=== PATIENT | female | born 1945 | race Caucasian/White ===

== ENCOUNTER 2018-03-24 14:31 | Observation (INO) ==
--- NOTE | 2018-03-24 15:21 | Emergency Department Note ---
Disposition Clinical Impression: GEE (acute kidney injury) Chest pain Qualifiers: Chest pain type: unspecified Qualified Code(s): R07.9 - Chest pain, unspecified Disposition: Admitted As Inpatient Condition: Good Referrals: Lazarus Can CNP [Primary Care Provider] - Forms: ED Satisfaction Letter Time of Disposition: 19:10 General Adult HPI - General Chief complaint: ED Dizziness Stated complaint: Dizzy Time Seen by Provider: 03/24/18 14:41 Source: patient, EMS Mode of arrival: ambulatory Limitations: no limitations Nursing Notes Reviewed: Yes Vital Signs Reviewed: Yes - History of Present Illness HPI Narrative: Patient is a 73-year-old female that presents emergency department with a chief complaint of dizziness. Patient states that she was riding with her daughter and began to feel lightheaded and dizzy. She states that she felt like this is likely secondary to her blood sugar being low so she took 2 glucose tablets and states that this did not immediately provide relief. Patient did state that she was having chest pain located on the left side of her chest that was sharp in nature. Patient was unable to state whether or not she had any shortness of breath and radiation of the pain. Patient states that she just cannot remember. Patient states that she did become nauseated and felt like she could throw up. Patient states that she has had 1 or 2 episodes like this in the past that was attributed to hypoglycemia. Pain Scale: 0 - Related Data Home Medications Medication Instructions Recorded Confirmed Gabapentin [Neurontin] 300 mg PO BID 03/24/18 03/24/18 Lisinopril [Zestril] 5 mg PO DAILY 03/24/18 03/24/18 Metformin HCl [Glucophage] 1,000 mg PO BID 03/24/18 03/24/18 Simvastatin [Zocor] 2.5 mg PO DAILY 03/24/18 03/24/18 glyBURIDE [GlyBURIDE] 5 mg PO DAILY 03/24/18 03/24/18 Allergies Allergy/AdvReac Type Severity Reaction Status Date / Time No Known Allergies Allergy Verified 03/24/18 18:59 All systems ED: reviewed and negative except as stated. Cardiovascular: Reports: chest pain Respiratory: Denies: dyspnea Gastrointestinal: Reports: nausea. Denies: abdominal pain, vomiting, diarrhea Past Medical History - Past Medical History Medical history: Reports: arthritis, diabetes, hyperlipidemia, hypertension Psychiatric history: Reports: anxiety, depression - Social History Smoking Status: Former smoker Smokeless Tobacco Status: No Alcohol use: Reports: none Drug use: Reports: none Physical Exam - General Limitations: no limitations General appearance: alert, in no apparent distress - Head Head exam: atraumatic, normocephalic - Eye Eye exam: Present: normal appearance, EOMI - Neck Neck exam: Present: normal inspection, full ROM, trachea midline - Respiratory Respiratory exam: Present: normal lung sounds bilaterally. Absent: respiratory distress, wheezes - Cardiovascular Cardiovascular exam: Present: regular rate, normal rhythm, normal heart sounds, +S1, +S2 - Abdominal Exam Abdominal exam: Present: soft, Non-Tender, normal bowel sounds - Neurological Exam Neurological exam: Present: alert, oriented X3 - Psychiatric Psychiatric exam: Present: normal affect, normal mood - Skin Skin exam: Present: warm, dry, intact Course Vital Signs Temperature 98.5 F 03/24/18 14:38 Pulse Rate 78 03/24/18 14:38 Respiratory Rate 22 03/24/18 14:38 Blood Pressure 118/70 03/24/18 14:38 O2 Sat by Pulse Oximetry 96 03/24/18 14:38 Temperature 98.5 F 03/24/18 14:38 Pulse Rate 82 03/24/18 17:05 Respiratory Rate 16 03/24/18 17:05 Blood Pressure 121/74 03/24/18 17:05 O2 Sat by Pulse Oximetry 100 03/24/18 17:05 Oxygen Delivery Oxygen Delivery Room Air Medical Decision Making - MDM Narrative Medical decision making narrative: Due the patient presenting to the emergency department with dizziness and associated chest pain we will obtain a CBC, BMP, troponin, chest x-ray and EKG. Due to the patient being 73 years old and having no prior cardiac history and now having a near syncopal episode with chest pain the patient will likely need to be admitted to the hospital for further evaluation and management. Patient' s troponin is negative. Patient does appear to have an GEE. EKG did not show any ischemic changes. Chest x-ray did show a rightward shifting mediastinum so a CT of the chest was ordered which was negative for acute process. Due to the patient's symptoms of history of present illness and concern for ACS the patient will need to be admitted to the hospital for further evaluation and management. The patient and family member were in agreement with this plan. - Lab Data Lab results reviewed: Yes I reviewed the patient's lab results. Result diagrams: 03/24/18 15:31 03/24/18 15:31 Lab Results 03/24/18 03/24/18 Range/Units 15:31 15:31 WBC 10.5 (4.3-11.1) K/mcL RBC 3.77 L (3.82-4.97) M/mcL Hgb 12.2 (11.5-15.4) g/dL Hct 35.9 (35.3-44.9) % MCV 95.2 (83.0-100.0) fL MCH 32.4 (28.0-33.3) pg MCHC 34.0 (31.6-35.5) g/dL RDW 12.5 (11.5-14.5) % Plt Count 270 (140-400) K/mcL MPV 9.4 (9.4-12.4) fL Immature Gran % 0.4 (0-4) % Seg Neutrophils % 64.1 % Lymphocytes % 24.7 % Monocytes % 5.6 % Eosinophils % 4.4 % Basophils % 0.8 % Neutrophils # 6.7 (1.6-8.9) K/mcL Lymphocytes # 2.6 (0.6-4.6) K/mcL Monocytes # 0.6 (0.0-1.3) K/mcL Eosinophils # 0.5 (0.0-0.6) K/mcL Basophils # 0.1 (0.0-0.2) K/mcL Sodium 137 (136-145) mEq/L Potassium 4.6 (3.5-5.1) mEq/L Chloride 103 (98-107) mEq/L Carbon Dioxide 24 (23-29) mEq/L BUN 11 (8-23) mg/dL Creatinine 1.33 H (0.60-1.20) mg/dL Est GFR ( Amer) 48 L (> 60) Est GFR (Non-Af Amer) 39 L (> 60) BUN/Creatinine Ratio 8 (6-26) Glucose 218 H (70-105) mg/dL Calculated Osmolality 290 (280-300) Calcium 9.2 (8.6-10.3) mg/dL Troponin I < 0.03 (< 0.04) ng/mL - Radiology Data Radiology results reviewed: Yes I reviewed the patient's radiology results. Chest X-Ray 03/24/18 15:14 IMPRESSION: 1. Right hemithoracic volume loss with mediastinal shift to the right. This may be chronic, but there are no prior studies available for comparison. Please correlate for any prior surgical history. 2. No evidence of acute intrathoracic process. D/ / 03/24/2018 15:54:13 Carmina ravi Interpreting Provider: Carmina Cheung Chest CT 03/24/18 16:52 IMPRESSION: 1. No acute intrathoracic process. The appearance on chest radiograph was probably artifactual. 2. Tiny hiatal hernia. 3. Moderate coronary artery calcification. D/ / 03/24/2018 17:54:43 Carmina ravi Interpreting Provider: Carmina Cheung - EKG Data EKG #1 EKG attestation: Yes I reviewed and interpreted this EKG. EKG results narrative: EKG shows a sinus rhythm at 79 bpm, AK interval of 228, curious duration 96, QTc of 450 with no evidence of STEMI at this time.
[2018-03-24 15:58] LABS: Basophils # 0.1 K/mcL (0.0-0.2); Basophils % 0.8 %; Eosinophils # 0.5 K/mcL (0.0-0.6); Eosinophils % 4.4 %; Hematocrit 35.9 % (35.3-44.9); Hemoglobin 12.2 g/dL (11.5-15.4); Immature Granulocytes % 0.4 % (0-4); Lymphocytes # 2.6 K/mcL (0.6-4.6); Lymphocytes % 24.7 %; Mean Corpuscular Hemoglobin 32.4 pg (28.0-33.3); Mean Corpuscular Volume 95.2 fL (83.0-100.0); Mean Platelet Volume 9.4 fL (9.4-12.4); Monocytes # 0.6 K/mcL (0.0-1.3); Monocytes % 5.6 %; Neutrophils # 6.7 K/mcL (1.6-8.9); Platelet Count 270 K/mcL (140-400); Red Blood Count 3.77 M/mcL (3.82-4.97); Red Cell Distribution Width 12.5 % (11.5-14.5); Segmented Neutrophils % 64.1 %
--- NOTE | 2018-03-24 15:59 | Emergency Department Note ---
Disposition Clinical Impression: GEE (acute kidney injury) Chest pain Qualifiers: Chest pain type: unspecified Qualified Code(s): R07.9 - Chest pain, unspecified Disposition: Admitted As Inpatient Condition: Good Referrals: Lazarus Can CNP [Primary Care Provider] - Forms: ED Satisfaction Letter General Adult HPI - General Chief complaint: ED Dizziness Stated complaint: Dizzy Time Seen by Provider: 03/24/18 14:41 Source: patient, EMS Mode of arrival: ambulatory Limitations: no limitations - History of Present Illness Pain Scale: 0 - Related Data Home Medications Medication Instructions Recorded Confirmed Gabapentin [Neurontin] 300 mg PO BID 03/24/18 03/24/18 Lisinopril [Zestril] 5 mg PO DAILY 03/24/18 03/24/18 Metformin HCl [Glucophage] 1,000 mg PO BID 03/24/18 03/24/18 Simvastatin [Zocor] 2.5 mg PO DAILY 03/24/18 03/24/18 glyBURIDE [GlyBURIDE] 5 mg PO DAILY 03/24/18 03/24/18 Allergies Allergy/AdvReac Type Severity Reaction Status Date / Time No Known Allergies Allergy Verified 03/24/18 18:59 Cardiovascular: Reports: chest pain Respiratory: Denies: dyspnea Gastrointestinal: Reports: nausea. Denies: abdominal pain, vomiting, diarrhea Past Medical History - Past Medical History Medical history: Reports: arthritis, diabetes, hyperlipidemia, hypertension Psychiatric history: Reports: anxiety, depression - Social History Smoking Status: Former smoker Smokeless Tobacco Status: No Alcohol use: Reports: none Drug use: Reports: none Physical Exam - General Limitations: no limitations General appearance: alert, in no apparent distress Course Vital Signs Temperature 98.5 F 03/24/18 14:38 Pulse Rate 78 03/24/18 14:38 Respiratory Rate 22 03/24/18 14:38 Blood Pressure 118/70 03/24/18 14:38 O2 Sat by Pulse Oximetry 96 03/24/18 14:38 Temperature 98.5 F 03/24/18 14:38 Pulse Rate 85 03/24/18 19:00 Respiratory Rate 16 03/24/18 19:00 Blood Pressure 140/79 03/24/18 19:00 O2 Sat by Pulse Oximetry 99 03/24/18 19:00 Oxygen Delivery Oxygen Delivery Room Air Medical Decision Making - Lab Data Result diagrams: 03/24/18 15:31 03/24/18 15:31 Lab Results 03/24/18 03/24/18 03/24/18 Range/Units 15:31 15:31 17:49 WBC 10.5 (4.3-11.1) K/mcL RBC 3.77 L (3.82-4.97) M/mcL Hgb 12.2 (11.5-15.4) g/dL Hct 35.9 (35.3-44.9) % MCV 95.2 (83.0-100.0) fL MCH 32.4 (28.0-33.3) pg MCHC 34.0 (31.6-35.5) g/dL RDW 12.5 (11.5-14.5) % Plt Count 270 (140-400) K/mcL MPV 9.4 (9.4-12.4) fL Immature Gran % 0.4 (0-4) % Seg Neutrophils % 64.1 % Lymphocytes % 24.7 % Monocytes % 5.6 % Eosinophils % 4.4 % Basophils % 0.8 % Neutrophils # 6.7 (1.6-8.9) K/mcL Lymphocytes # 2.6 (0.6-4.6) K/mcL Monocytes # 0.6 (0.0-1.3) K/mcL Eosinophils # 0.5 (0.0-0.6) K/mcL Basophils # 0.1 (0.0-0.2) K/mcL Sodium 137 (136-145) mEq/L Potassium 4.6 (3.5-5.1) mEq/L Chloride 103 (98-107) mEq/L Carbon Dioxide 24 (23-29) mEq/L BUN 11 (8-23) mg/dL Creatinine 1.33 H (0.60-1.20) mg/dL Est GFR ( Amer) 48 L (> 60) Est GFR (Non-Af Amer) 39 L (> 60) BUN/Creatinine Ratio 8 (6-26) Glucose 218 H (70-105) mg/dL Calculated Osmolality 290 (280-300) Calcium 9.2 (8.6-10.3) mg/dL Troponin I < 0.03 < 0.03 (< 0.04) ng/mL Attestation Statement - Attestation Attestation: Patient seen in conjunction with resident physician Donald Glen. Patient presents after an episode of chest pain followed by near syncope and diaphoresis. Patient has not had a previous cardiac evaluation. She did take some glucose tablets that she thought it might be related to hypoglycemia. Glucose tablets and symptoms resolved after about 20 minutes. Does not correlate specifically to the glucose itself. She states that she feels generalized fatigue as well as a heaviness throughout. The patient has not improved significantly even an hour after the initial incident. She initially was reluctant to describe the chest pain however after talking with the patient she is more scared about being in the hospital in finding a bed diagnosis than just not wanting to be in the hospital. The patient has been educated about need for possible further workup. Possible mediastinal shift. Patient has elevated creatinine and cannot undergo CTA. CT noncontrast has been ordered. Patient is agreeable to admission for further evaluation of near-syncope and ACS. Please see resident note for further details and disposition.
[2018-03-24 16:16] LABS: Troponin I < 0.03 ng/mL (< 0.04)
[2018-03-24 16:28] LABS: BUN/Creatinine Ratio 8 (6-26); Blood Urea Nitrogen 11 mg/dL (8-23); Calcium 9.2 mg/dL (8.6-10.3); Carbon Dioxide 24 mEq/L (23-29); Chloride 103 mEq/L (98-107); Glucose 218 mg/dL (70-105); Osmolality,Calculated 290 (280-300); Potassium 4.6 mEq/L (3.5-5.1); Sodium 137 mEq/L (136-145); eGFR For Non-African Americans 39 (> 60)
[2018-03-24] MEDS ORDERED: 0.9 % Sodium Chloride 1,000 ML IVC ONE (17:08)
[2018-03-24] MEDS ORDERED: Naloxone 0.4 MG/ML INJ IVP PRN (21:10)
[2018-03-24] MEDS ORDERED: *HR* Dextrose 50 % in Water (Syg) 50 ML SYRINGE IVP PRN (21:10)
[2018-03-24] MEDS ORDERED: Dextrose Gel 15 GM/37.5 ML TUBE PO PRN ×2 (21:10)
[2018-03-24] MEDS ORDERED: Acetaminophen 325 MG TABLET PO PRN (21:10)
[2018-03-24] MEDS ORDERED: D5% in Water 1,000 ML IVC PRN (21:10)
[2018-03-24] MEDS ORDERED: Nitroglycerin 0.4 MG TAB.SUBL SL PRN (21:13)
--- NOTE | 2018-03-24 21:22 | Internal Med History&Physical ---
Date of Encounter: 03/24/18 Time of Encounter: 19:30 Internal Medicine - H&P: HPI Chief complaint: chest pain, dizziness Admitted From: Emergency Dept Plans for Post Hospital Care: Home History of present illness: Ms. Mac is a 73 year old female who presents with complaints of chest pain, dizziness, and diaphoresis. She was en route to the hospital with her daughter driving when she became dizzy and diaphoretic. Her initial symptom was chest pain and heaviness. While driving, her daughter stopped the car and called 911. She was then transported to ER by EMS squad. She is currently chest pain- free. However, given her risk factors and presenting symptoms, she was admitted to hospitalist service for further workup and care. I saw and evaluated patient in the ER and in the presence of her family. She remains chest pain-free. However, she and her family all confirmed above history. She has never had chest pain like this before. She has no prior cardiac history. Her cardiac risk factors include diabetes, strong family history, and hyperlipidemia. Past Med Surg Social Fam HX - Past Medical History Attestation: Yes The following information was validated with the patient. Source: patient, obtained from family, other (ER notes) Medical history: arthritis, diabetes, hyperlipidemia, hypertension Psychiatric history: anxiety, depression - Past Surgical History Surgical History: cholecystectomy, herniorrhaphy, ROSALINA/BSO - Social History Smoking Status: Former smoker Smokeless Tobacco Status: No Alcohol use: none Drug use: none Current living situation: Home, With Family Activity Level: Independent ambulation Recent Out of Country Travel Within the Last 8 Weeks: No - Family History Mother Living Status: Hx Family Cardiac Disorders: Yes Father Living Status: Hx Family Cardiac Disorders: Yes Internal Medicine - H&P: Meds Gabapentin [Neurontin] 300 mg PO BID 03/24/18 [History] Lisinopril [Zestril] 5 mg PO DAILY 03/24/18 [History] Metformin HCl [Glucophage] 1,000 mg PO BID 03/24/18 [History] Simvastatin [Zocor] 2.5 mg PO DAILY 03/24/18 [History] glyBURIDE [GlyBURIDE] 5 mg PO DAILY 03/24/18 [History] 3 Allergy/AdvReac Type Severity Reaction Status Date / Time No Known Allergies Allergy Verified 03/24/18 18:59 - Constitutional Constitutional: no chills, no fever(s) - EENT Eyes: no blurry vision, no change in vision Ears: no ear pain, no tinnitus Nose, mouth and throat: no nasal congestion, no nasal discharge, no sore throat - Cardiovascular Cardiovascular ROS IM: chest pain, diaphoresis, dyspnea, lightheadedness, no irregular heart rhythm, no syncope - Respiratory Respiratory: no cough, no hemoptysis, no wheezing, no chest congestion, no excessive phlegm production, no change in phlegm color - Gastrointestinal Gastrointestinal: no abdominal pain, no diarrhea, no hematemesis, no hematochezia, no melena, no vomiting - Genitourinary Genitourinary: no dysuria, no flank pain, no hematuria - Musculoskeletal Musculoskeletal ROS IM: no back pain, no muscle cramps, no myalgias - Integumentary Integumentary IM: no rash, no jaundice - Neurological Neurological ROS: dizziness, no focal weakness, no frequent falls, no headache(s ) - Psychiatric Psychiatric: no anxiety, no depression - Endocrine Endocrine IM: no polydipsia, no polyuria - Allergic/Immunologic Allergic/Immunologic: no wheezing, no GI upset with certain foods - Constitutional Vitals: Temp Pulse Resp BP Pulse Ox 98.5 F 84 16 145/101 96 03/24/18 14:38 03/24/18 20:29 03/24/18 20:29 03/24/18 20:29 03/24/18 20:29 General appearance: Present: cooperative, A&O X 3, pleasant, no acute distress, answers questions appropriately Exam: see below - Head Head exam: Present: normal inspection - Eye Eye exam: Present: EOMI, PERRL. Absent: scleral icterus Pupils: Present: normal accommodation - ENT ENT exam: Present: mucous membranes dry, normal exam, normal oropharynx - Neck Neck exam general surgery: Present: full ROM, supple. Absent: tenderness, nuchal rigidity, thyromegaly - Expanded Neck Exam Neck exam: Absent: carotid bruit - Respiratory Respiratory exam: Present: CTAB. Absent: chest wall tenderness, rales, respiratory distress, rhonchi, wheezes - Cardiovascular Cardiovascular exam: Present: RRR, +S1, +S2. Absent: diastolic murmur, systolic murmur - GI/Abdominal GI/Abdominal exam: Present: normal bowel sounds, soft. Absent: guarding, hepatomegaly, mass, splenomegaly, tenderness - Extremities Exam Extremities exam: Present: full ROM, normal capillary refill, warm, radial pulses palpable and symmetrical. Absent: calf tenderness, joint swelling, pedal edema, tenderness - Back Exam Back exam: Absent: CVA tenderness (L), CVA tenderness (R) - Neurological Exam Neurological exam: Present: alert, CN II-XII intact, oriented X3, no focal deficits - Psychiatric Psychiatric exam: Present: normal affect, normal mood - Skin Skin exam: Present: dry, warm. Absent: rash Internal Med - H&P Results - Labs CBC & Chem 7: 03/24/18 15:31 03/24/18 15:31 - EKG Data -: EKG Interpreted by Myself - EKG Data Prior EKG available for review: no EKG comments: 03/24/18 21:28 NSR; high voltage with criteria for LVH; no acute ST-T changes - Diagnostic Studies CT scan - chest Status: image reviewed by me (negative) - Assessment and plan (1) Chest pain Current Visit: Yes Status: Acute Assessment and plan: 1. Will trend troponins and EKG's. 2. Will order ECHO and stress test to be done in the morning. 3. If above abnormal, will consult cardiology. Qualifiers: Chest pain type: precordial pain Qualified Code(s): R07.2 - Precordial pain (2) Type 2 diabetes mellitus Current Visit: Yes Status: Chronic Assessment and plan: 1. Will hold oral meds and monitor glucose levels. 2. Will place on SSI for now. Qualifiers: Diabetes mellitus middle or intermediate school principal insulin use: without middle or intermediate school principal use Diabetes mellitus complication status: without complication Qualified Code(s): E11.9 - Type 2 diabetes mellitus without complications (3) GEE (acute kidney injury) Current Visit: Yes Status: Acute Assessment and plan: 1. Will hydrate with IVF and monitor renal function. I suspect she is mildly dehydrated. 2. Hold oral diabetic meds and Lisinopril. 3. Repeat chemistry panel in AM. If GEE persists, she will need nephrology consultation. (4) DVT prophylaxis Current Visit: Yes Status: Acute Assessment and plan: 1. Heparin SQ.
[2018-03-24] MEDS: 0.9 % Sodium Chloride 1,000 ML IVC SCH (21:34)
[2018-03-24] MEDS: Gabapentin 300 MG CAPSULE PO SCH (21:50)
[2018-03-25] MEDS ORDERED: Regadenoson 0.4 MG/5 ML SYRINGE IVP ONE (05:48)
[2018-03-25] MEDS ORDERED: *HR* Heparin 5,000 UNIT/ML VIAL SQ SCH (06:00)
--- NOTE | 2018-03-25 06:25 | Electrocardiograph Report ---
[facility] Test Date: 2018-03-24 Pat Name: Alondra Mac Department: [id number] Room: 2A41 Gender: F Staffing Specialist: : [id number] Requested By: [id number] Order Number: [id number] Reading MD: Corey Peter Measurements Intervals [place] Rate: 79 P: 19 OK: 228 QRS: -12 QRSD: 96 T: 33 QT: 392 QTc: 450 Interpretive Statements Sinus rhythm Electronically Signed On 03-25-2018 6:23:57 EDT by Corey Peter
[2018-03-25 06:36] LABS: Basophils # 0.1 K/mcL (0.0-0.2); Basophils % 0.9 %; Eosinophils # 0.5 K/mcL (0.0-0.6); Eosinophils % 6.7 %; Hematocrit 34.4 % (35.3-44.9); Hemoglobin 11.4 g/dL (11.5-15.4); Immature Granulocytes % 0.1 % (0-4); Lymphocytes # 3.1 K/mcL (0.6-4.6); Lymphocytes % 39.4 %; Mean Corpuscular HGB Conc 33.1 g/dL (31.6-35.5); Mean Corpuscular Hemoglobin 31.4 pg (28.0-33.3); Mean Corpuscular Volume 94.8 fL (83.0-100.0); Mean Platelet Volume 9.4 fL (9.4-12.4); Monocytes # 0.4 K/mcL (0.0-1.3); Monocytes % 5.1 %; Neutrophils # 3.8 K/mcL (1.6-8.9); Platelet Count 249 K/mcL (140-400); Red Blood Count 3.63 M/mcL (3.82-4.97); Red Cell Distribution Width 12.5 % (11.5-14.5); Segmented Neutrophils % 47.8 %
[2018-03-25 06:42] LABS: INR 0.9; Prothrombin Time 10.6 Seconds (9.4-12.1)
[2018-03-25 06:55] LABS: BUN/Creatinine Ratio 8 (6-26); Blood Urea Nitrogen 8 mg/dL (8-23); Calcium 8.5 mg/dL (8.6-10.3); Carbon Dioxide 25 mEq/L (23-29); Chloride 108 mEq/L (98-107); Chol/HDL Ratio 3.4 (0-4.9); Cholesterol 145 mg/dL (< 200); Glucose 83 mg/dL (70-105); HDL Cholesterol 43 mg/dL (40-59); LDL Cholesterol,Calculated 84 mg/dL (0-99); Magnesium 1.9 mg/dL (1.6-2.6); Osmolality,Calculated 283 (280-300); Potassium 4.2 mEq/L (3.5-5.1); Sodium 138 mEq/L (136-145); Triglycerides 91 mg/dL (< 150); eGFR For Non-African Americans 57 (> 60)
[2018-03-25] MEDS: Gabapentin 300 MG CAPSULE PO SCH (09:51)
[2018-03-25] MEDS: 0.9 % Sodium Chloride 1,000 ML IVC SCH (09:52)
[2018-03-25] MEDS: Insulin LISPRO 300 UNITS/3 ML VIAL SQ SCH ×2 (09:58→12:52)
[2018-03-25 11:04] VITALS: BP 134/77
--- NOTE | 2018-03-25 14:30 | Discharge Summary ---
- NOTES TO OUTPATIENT PROVIDER Notes to Outpatient Provider: Patient is an outpatient BMP within a week. She has also been instructed to keep a blood pressure diary and she will the reports with her primary care provider. Orders not resulted at time of discharge: Pending orders 03/25/18 05:31 NM kathryn perf SPECT multi [NM] Routine 03/25/18 06:00 ECG 12 lead ECG [ECG] AM 0600 Date of Encounter: 03/25/18 Time of Encounter: 14:26 - Discharge Diagnosis (1) Chest pain Priority: Primary Status: Acute Qualifiers: Chest pain type: precordial pain Qualified Code(s): R07.2 - Precordial pain (2) GEE (acute kidney injury) Priority: Secondary Status: Acute (3) Type 2 diabetes mellitus Priority: Secondary Status: Chronic Qualifiers: Diabetes mellitus prison insulin use: without prison use Diabetes mellitus complication status: without complication Qualified Code(s): E11.9 - Type 2 diabetes mellitus without complications (4) DVT prophylaxis Priority: Secondary Status: Acute Hospital course: Ms. Mac is a 73 year old female with a past medical history diabetes type 2 who presented with chest pain. She also was found to be in acute renal failure with creatinine of 1.3 with a baseline of 0.9. She was given hydration and her lisinopril was held on admission which resulted in significant improvement of creatinine and her serial cardiac troponins were negative and there was no untoward evidence of acute coronary syndrome on telemetry monitoring. She underwent a echocardiogram which showed good ejection fraction and no wall motion abnormalities. She also had a nuclear medicine perfusion scan which was negative for ischemia. At the time of discharge of held her IVONNE inhibitor's because she was getting a very low-dose most likely for nephro protection. I lasted to give a blood pressure diary and follow up with a BMP with her primary care physician in one weeks time and consider resuming IVONNE inhibitor that point. Discharge discussed with: patient - Time Spent with Patient Total time spent providing and/or coordinating discharge services: Greater than 30 minutes - Discharge Medications Home Medications: Gabapentin [Neurontin] 300 mg PO BID 03/24/18 [History] Metformin HCl [Glucophage] 1,000 mg PO BID 03/24/18 [History] Simvastatin [Zocor] 2.5 mg PO DAILY 03/24/18 [History] glyBURIDE [GlyBURIDE] 5 mg PO DAILY 03/24/18 [History] Allergies/Adverse Reactions: 3 Allergy/AdvReac Type Severity Reaction Status Date / Time No Known Allergies Allergy Verified 03/24/18 18:59 Date of admission: 03/24/18 19:44 Primary care physician: Lazarus Can CNP - Constitutional Vitals: Temp Pulse Resp BP Pulse Ox 97.7 F 75 16 134/77 98 03/25/18 11:02 03/25/18 11:02 03/25/18 11:02 03/25/18 11:02 03/25/18 11:02 General appearance: Present: cooperative, A&O X 3, pleasant, no acute distress, answers questions appropriately Exam: GENERAL: Alert, no distress, cooperative EYES: PERRLA, EOMI EARS: External ears normal, canals clear OROPHARYNX: Lips, mucosa, and tongue normal. Teeth and gums normal. Oropharynx normal. NECK: No jugulovenous distention, No carotid bruits, Carotid pulse normal contour, Supple LUNGS: Lungs clear to auscultation, Good diaphragmatic excursion CARDIAC: Normal S1 and S2; no rubs, murmurs, or gallops ABDOMEN: Abdomen soft, non-tender, BS normal, No masses or organomegaly EXTREMITIES: Extremities normal, no deformities, edema, clubbing or skin discoloration. Good capillary refill., No ulcers NEURO: Gait normal. Reflexes normal and symmetric. Sensation grossly intact, Cranial nerves II-XII intact PULSES: 2+ radial, 2+ carotid Rest of the exam is non contributory - Patient Status Disposition: Home, Self-Care Functional capacity at discharge: independent ambulation Overall status at discharge: patient is back to baseline - Discharge Instructions Follow Up With: Lazarus Can CNP [Primary Care Provider] - - Diet and Activity Activity: increase activity as tolerated Diet: advance to your usual diet
== END 2018-03-25 15:07 | disposition home or self-care (01) ==
LOC: EMEROOARM 14:31 → 2ANU 14:31 → SUATTDRO 19:44 → 2ANU 21:03
PROVIDERS: ADMIT Internal Medicine; ATTEND Internal Medicine